=== PATIENT | female | born 1980 | race African-American/Black ===

== ENCOUNTER 2019-04-28 02:45 | Emergency (ER) | payer BC, OTHER ==
[~2019-04-28] VITALS: Ht 167.6 cm; Wt 57.1 kg
[2019-04-28 03:56] LABS: HEMOGLOBIN 11.9 gm/dL (12.0-15.0); MCH 30.6 pg (26.0-34.0); MCHC 34.1 g/dL (28.0-37.0); MCV 89.9 fL (80.0-100.0); RBC 3.89 mil/uL (4.20-5.00); RDW 13.3 % (10.5-14.5); WBC 9.9 thou/uL (4.0-11.0)
[2019-04-28 05:17] VITALS: BP 119/69
== END 2019-04-28 06:13 | disposition home or self-care (01) ==
LOC: ER 02:45
PROVIDERS: Emergency Medicine
DX: O03.4 Incomplete spontaneous abortion without complication (principal); O02.0 Blighted ovum and nonhydatidiform mole

== ENCOUNTER 2019-05-06 12:20 | Emergency (ER) | payer BC, OTHER ==
[~2019-05-06] VITALS: Ht 167.6 cm; Wt 57.1 kg
[2019-05-06 12:41] LABS: URINE BILIRUBIN NEGATIVE (Negative); URINE BLOOD 2+ (Negative); URINE CLARITY CLEAR; URINE COLOR YELLOW; URINE GLUCOSE-RANDOM* NEGATIVE (Negative); URINE KETONES NEGATIVE (Negative); URINE LEUKOCYTES-REFLEX 2+ (Negative); URINE NITRITE-REFLEX NEGATIVE (Negative); URINE PROTEIN (DIPSTICK) NEGATIVE (Negative); URINE UROBILINOGEN 0.2 E.U./dl (0.2-1.0)
[2019-05-06 12:53] LABS: CASTS None Seen /LPF (None Seen); MUCUS 4-6 Moderate strn/LPF (None Seen); SQUAMOUS 4-10 Moderate /LPF (0-3); URINE WBC-REFLEX 0-5 Rare /HPF (0-5)
[2019-05-06 12:54] LABS: BACTERIA-REFLEX 1-9 Few /HPF (None Seen); CRYSTALS None Seen /LPF (None Seen); URINE RBC 0-2 Rare /HPF (0-2)
[2019-05-06 13:17] LABS: CALCIUM 9.4 mg/dL (8.5-10.1); CREATININE 0.5 mg/dL (0.6-1.0); POTASSIUM 4.1 mmol/L (3.5-5.1)
[2019-05-06 13:19] LABS: ABSOLUTE NEUTROPHILS 13.8 thou/uL (1.4-8.2); BASOPHILS 0.3 % (0.0-2.0); EOSINOPHILS 0.3 % (0.0-3.0); HEMATOCRIT 38.1 % (37.0-47.0); HEMOGLOBIN 12.7 gm/dL (12.0-15.0); LYMPHOCYTES 10.3 % (24.0-44.0); MCH 30.6 pg (26.0-34.0); MCHC 33.2 g/dL (28.0-37.0); MCV 92.1 fL (80.0-100.0); MONOCYTES 5.9 % (1.0-8.0); PLATELET COUNT 302 thou/uL (150-400); POLYS 83.2 % (36.0-66.0); RBC 4.14 mil/uL (4.20-5.00); RDW 13.6 % (10.5-14.5); WBC 16.6 thou/uL (4.0-11.0)
[2019-05-06 13:23] LABS: ALBUMIN 4.4 g/dL (3.4-5.0); TOTAL BILIRUBIN 0.3 mg/dL (<0.1-1.0); TOTAL PROTEIN 7.8 g/dL (6.4-8.2)
[2019-05-06] MEDS ORDERED: KEFLEX500 M1 PO (17:00)
[2019-05-06] MEDS ORDERED: IBUPROFEN 600600 M1 PO (17:00)
[2019-05-06 17:16] VITALS: BP 117/70
== END 2019-05-06 16:44 | disposition home or self-care (01) ==
LOC: ER 12:20
PROVIDERS: Nurse Practitioner Family
DX: N73.9 Female pelvic inflammatory disease, unspecified (principal); N39.0 Urinary tract infection, site not specified; R42 Dizziness and giddiness